=== PATIENT | male | born 1950 | race African-American/Black ===

== ENCOUNTER 2017-06-19 18:23 | Emergency (ER) | payer MEDICARE, OTHER ==
[2017-06-19 19:37] LABS: ADD MAN DIFF? NO
[2017-06-19] MEDS: LABETALOL 20 MG/4 ML DISP.SYRIN. IVP (19:39)
[2017-06-19 19:48] LABS: ANION GAP 10 (6-14); BLOOD UREA NITROGEN 17 mg/dL (8-26); CARBON DIOXIDE 28 mmol/L (21-32); CHLORIDE 106 mmol/L (98-107); CREATININE 1.3 mg/dL (0.7-1.3); GFR 66.6; GLUCOSE 90 mg/dL (70-99); POTASSIUM 3.7 mmol/L (3.5-5.1); SODIUM 144 mmol/L (136-145)
[2017-06-19 19:50] LABS: INR 1.1 (0.8-1.1); PROTHROMBIN TIME PATIENT 13.4 SEC (11.7-14.0)
[2017-06-19 19:52] LABS: BASO # 0.1 x10^3/uL (0.0-0.2); BASO % 1 % (0-3); EOS # 0.2 x10^3/uL (0.0-0.7); EOS % 3 % (0-3); HEMATOCRIT 37.8 % (39.0-53.0); HEMOGLOBIN 12.9 g/dL (13.0-17.5); LYMPH # 1.6 x10^3/uL (1.0-4.8); LYMPH % 24 % (24-48); MEAN CORPUSCULAR HEMOGLOBIN 30 pg (25-35); MEAN CORPUSCULAR HGB CONC 34 g/dL (31-37); MEAN CORPUSCULAR VOLUME 88 fL (79-100); MONO # 0.6 x10^3/uL (0.0-1.1); MONO % 8 % (0-9); NEUT # 4.3 x10^3uL (1.8-7.7); NEUT % 64 % (31-73); PLATELET COUNT 143 x10^3/uL (140-400); RED BLOOD COUNT 4.29 x10^6/uL (4.30-5.70); RED CELL DISTRIBUTION WIDTH 14.2 % (11.5-14.5); WHITE BLOOD COUNT 6.8 x10^3/uL (4.0-11.0)
[2017-06-19 20:28] LABS: PLT ESTIMATE ADEQUATE (ADEQUATE)
== END 2017-06-19 20:34 | disposition home or self-care (01) ==
LOC: ER 18:23
DX: R04.0 Epistaxis (principal); I10 Essential (primary) hypertension; E78.00 Pure hypercholesterolemia, unspecified; Z86.73 Personal history of transient ischemic attack (TIA), and cerebral infarction without residual deficits; Z88.0 Allergy status to penicillin
CPT/HCPCS: 36415; 80048; 85025; 85610; 96374; 99284-25; J3490

== ENCOUNTER → 2017-09-23 | Outpatient (CLI) | payer MEDICARE, OTHER ==
[2017-09-23 10:12] LABS: ADD MAN DIFF? NO
[2017-09-23 10:24] LABS: BASO % 1 % (0-3); EOS # 0.2 x10^3/uL (0.0-0.7); EOS % 3 % (0-3); HEMATOCRIT 42.7 % (39.0-53.0); HEMOGLOBIN 14.4 g/dL (13.0-17.5); LYMPH # 1.1 x10^3/uL (1.0-4.8); LYMPH % 20 % (24-48); MEAN CORPUSCULAR HEMOGLOBIN 30 pg (25-35); MEAN CORPUSCULAR HGB CONC 34 g/dL (31-37); MEAN CORPUSCULAR VOLUME 88 fL (79-100); MONO # 0.6 x10^3/uL (0.0-1.1); MONO % 10 % (0-9); NEUT # 3.7 x10^3uL (1.8-7.7); NEUT % 65 % (31-73); PLATELET COUNT 181 x10^3/uL (140-400); RED BLOOD COUNT 4.87 x10^6/uL (4.30-5.70); RED CELL DISTRIBUTION WIDTH 14.5 % (11.5-14.5); WHITE BLOOD COUNT 5.6 x10^3/uL (4.0-11.0)
[2017-09-23 10:51] LABS: ALBUMIN 3.6 g/dL (3.4-5.0); ALBUMIN/GLOBULIN RATIO 0.7 (1.0-1.7); ALK PHOS 118 U/L (46-116); ALT (SGPT) 22 U/L (16-63); ANION GAP 8 (6-14); AST (SGOT) 20 U/L (15-37); BLOOD UREA NITROGEN 20 mg/dL (8-26); BUN/CREATININE RATIO 13 (6-20); CALCIUM 9.6 mg/dL (8.5-10.1); CARBON DIOXIDE 29 mmol/L (21-32); CHLORIDE 104 mmol/L (98-107); CHOLESTEROL 115 mg/dL (0-200); CREATININE 1.6 mg/dL (0.7-1.3); GFR 52.3; GLUCOSE 113 mg/dL (70-99); HDLC 41 mg/dL (40-60); LDLC 60 mg/dL (0-100); NON-HDL CHOLESTEROL 74 mg/dL (0-129); POTASSIUM 3.4 mmol/L (3.5-5.1); SODIUM 141 mmol/L (136-145); TOTAL BILIRUBIN 0.6 mg/dL (0.2-1.0); TOTAL PROTEIN 8.5 g/dL (6.4-8.2); TRIGLYCERIDES 72 mg/dL (0-150); VLDLC 14 mg/dL (0-40)
[2017-09-23 10:52] LABS: CHOLESTEROL/HDL RATIO 2.8
[2017-09-23 11:06] LABS: THYROID STIM HORMONE (TSH) 0.645 uIU/mL (0.358-3.74)
[2017-09-23 11:07] LABS: PROSTATE SPECIFIC ANTIGEN 0.46 ng/mL (0.00-4.00)
== END | disposition home or self-care (01) ==
LOC: LAB 09:59
DX: Z12.5 Encounter for screening for malignant neoplasm of prostate (principal); I10 Essential (primary) hypertension; E78.2 Mixed hyperlipidemia; M54.5 Low back pain; R53.83 Other fatigue
CPT/HCPCS: 36415; 80053; 80061; 82306; 84443; 85025; 86141; G0103

== ENCOUNTER → 2018-06-08 | Outpatient (CLI) | payer MEDICARE, OTHER ==
[2017-06-19 20:34] VITALS: BP 172/100
[~2018-06-08] MED LIST: ACET325T9 PO; AMLO10TA8 PO; ASPI1CPM PO; ATOR40TA59 PO; BUPR150T6 PO; CARV3.1210 PO; DESI25TA PO; DEXT1DRO7 OP; FERR325T14 PO; FLUT9.9S NS; FOLI1TAB16 PO; GABA300C18 PO; HYDR12.58 PO; LISI-130 PO; NORT10CA3 PO; OXYC5TAB88 PO; PREG150C PO; SODI30SP NS
[2018-06-08 10:15] LABS: CHOLESTEROL/HDL RATIO 2.4
[2018-06-09 00:16] LABS: HEMOGLOBIN A1C 6.7 % (4.8-5.6)
== END | disposition home or self-care (01) ==
LOC: LAB 09:07
PROVIDERS: ATTEND Internal Medicine Cardiovascular Disease
DX: Z12.5 Encounter for screening for malignant neoplasm of prostate (principal); E78.2 Mixed hyperlipidemia
CPT/HCPCS: 36415; 80061; 82672; 83036; G0103

== ENCOUNTER → 2018-07-28 | Outpatient (CLI) | payer MEDICARE, OTHER ==
[2017-06-19 20:34] VITALS: BP 172/100
--- NOTE | 2018-07-28 10:00 | RAD ---
AP and Lateral Views of the Chest 07/28/2018 12:00 AM Indication: Follow-up, pneumonia Comparison: Chest radiograph May 14, 2016 Findings: No pneumothorax or pleural effusion is identified. No acute appearing focal consolidative infiltrate is seen. Heart size is normal. No acute osseous changes are identified. IMPRESSION: 1. No evidence of acute cardiopulmonary process Electronically signed by: Robin Barton MD (07/28/2018 9:58 AM) [id number]
[2018-07-28 10:14] LABS: CREATININE 1.2 mg/dL (0.7-1.3); GFR 72.6; POTASSIUM 3.8 mmol/L (3.5-5.1)
[2018-07-28 23:09] LABS: HEMOGLOBIN A1C 6.5 % (4.8-5.6)
== END | disposition home or self-care (01) ==
LOC: LAB 09:05
PROVIDERS: ATTEND Internal Medicine Cardiovascular Disease
DX: Z09 Encounter for follow-up examination after completed treatment for conditions other than malignant neoplasm (principal); E11.9 Type 2 diabetes mellitus without complications
CPT/HCPCS: 36415; 71046; 80048; 83036; 83735

== ENCOUNTER → 2019-01-21 | Outpatient (CLI) | payer OTHER ==
[2017-06-19 20:34] VITALS: BP 172/100
--- NOTE | 2019-01-22 08:08 | RAD ---
FOOT LEFT 2V 01/21/2019 12:00 AM INDICATION: Left foot pain, lateral aspect COMPARISON: None available. TECHNIQUE: 2 views of the left foot are provided. FINDINGS: There is a transversely oriented fracture involving the base of the fifth metatarsal with intra-articular extension to the tarsometatarsal joint. There is mild displacement with adjacent soft tissue swelling. Mild demineralization of the bones. Tiny posterior calcaneal enthesophyte is present. Vascular calcifications are present. IMPRESSION: Transversely oriented, mildly displaced fracture involving the base of the fifth metatarsal with intra-articular extension. Electronically signed by: Carito Unger MD (01/22/2019 8:05 AM) [id number]
== END | disposition home or self-care (01) ==
LOC: RAD 09:36
PROVIDERS: ATTEND Internal Medicine Cardiovascular Disease
DX: S92.352A Displaced fracture of fifth metatarsal bone, left foot, initial encounter for closed fracture (principal); M79.672 Pain in left foot; X58.XXXA Exposure to other specified factors, initial encounter; Y93.89 Activity, other specified; Y92.89 Other specified places as the place of occurrence of the external cause; Y99.8 Other external cause status
CPT/HCPCS: 73620

== ENCOUNTER → 2019-03-30 | Outpatient (CLI) | payer OTHER ==
[2017-06-19 20:34] VITALS: BP 172/100
--- NOTE | 2019-03-30 16:27 | RAD ---
EXAM: Left foot, 2 views. HISTORY: Fracture follow-up. COMPARISON: 01/21/2019 FINDINGS: 2 views of the left foot are obtained. There has been no significant change in a displaced fracture of the base of the fifth metatarsal. There has been no significant interval healing. No new fracture is seen. IMPRESSION: No significant change in a mildly displaced fracture involving the base of the fifth metatarsal. Electronically signed by: Therese España MD (03/30/2019 4:24 PM) [place] [id number]
== END | disposition home or self-care (01) ==
LOC: RAD 11:34
PROVIDERS: ATTEND Internal Medicine Cardiovascular Disease
DX: M79.672 Pain in left foot (principal)
CPT/HCPCS: 73620

== ENCOUNTER → 2019-04-26 | Outpatient (CLI) | payer OTHER ==
[2017-06-19 20:34] VITALS: BP 172/100
--- NOTE | 2019-04-26 15:53 | RAD ---
MRI of the lumbar spine without contrast 04/26/2019 CLINICAL HISTORY: Chronic low back pain. Osteoporosis. TECHNIQUE: Unenhanced T1-weighted and T2-weighted sagittal and axial and inversion recovery sagittal images of the lumbar spine were obtained. FINDINGS: For the purposes of this dictation five lumbar vertebrae have been assumed. The last reasonly well-defined lumbar-appearing disc space will be referred to as L5-S1. S1 is partially lumbarized. A hypoplastic disc is seen at S1-2. Minimal S-shaped curvature of the thoracolumbar spine is seen. Degenerative signal changes are seen involving all of the disks of the lumbar spine. Degenerative signal changes are seen within the marrow surrounding these discs. Loss of height of the L5-S1 disc is noted. The conus medullaris is within normal limits in morphology, position, and signal characteristics. The patient is post kyphoplasty type procedure for an old compression fracture involving the L1 vertebral body. No acute compression fracture of the lumbar vertebra is seen. At the L1-2 disc space there is a mild generalized disc bulge. This is eccentric to the right. Degenerative changes are seen involving the facet joints bilaterally. There is mild ligamentum flavum hypertrophy bilaterally. These findings when combined do not result in significant central spinal canal or neural foraminal stenosis. At the L2-3 disc space there is a mild generalized disc bulge. Degenerative changes are seen involving the facet joints bilaterally. There is mild ligamentum flavum hypertrophy bilaterally. These findings when combined result in mild central spinal canal stenosis. No neural foraminal stenosis is seen. At the L3-4 disc space there is a mild to moderate generalized disc bulge. Superimposed on this disc bulge is a left paracentral focal disc herniation which extrudes inferiorly to the mid L4 level. This extruded disc fragment measures 1.5 x 1.0 x 0.5 cm in craniocaudal, transverse and AP dimensions. Degenerative changes are seen involving the facet joints bilaterally. There is mild to moderate ligamentum flavum hypertrophy bilaterally. There are small facet joint effusions, left greater than right. These findings when combined with prominence of the posterior epidural fat result in mild to moderate central spinal canal stenosis. No neural foraminal stenosis is seen. The extruded disc fragment results in moderate left lateral central spinal canal stenosis to the mid L4 level. At the L4-5 disc space is a moderate generalized disc bulge. Degenerative changes are seen involving the facet joints bilaterally. There is moderate ligamentum flavum hypertrophy bilaterally. There is prominence of the posterior epidural fat. These findings when combined result in severe central spinal canal stenosis. No neural foraminal stenosis is seen. At the L5-S1 disc space there is a mild to moderate generalized disc bulge. Degenerative changes are seen involving the facet joints bilaterally. These findings when combined result in mild central spinal canal stenosis. Mild bilateral neural foraminal stenosis is seen. IMPRESSION: The changes of degenerative disc disease are seen throughout the lumbar spine. These findings result in mild central spinal canal stenosis at L2-3, mild to moderate central spinal canal stenosis at L3-4, moderate left lateral central spinal canal stenosis involving the superior/mid L4 level, severe central spinal canal stenosis at L4-5 and mild central spinal canal stenosis at L5-S1. Mild bilateral neural foraminal stenosis is seen at L5-S1. Electronically signed by: Javi García MD (04/26/2019 3:50 PM) [id number]
== END | disposition home or self-care (01) ==
LOC: MRI 14:01
PROVIDERS: ATTEND Internal Medicine Cardiovascular Disease
DX: M48.07 Spinal stenosis, lumbosacral region (principal); M51.36 Other intervertebral disc degeneration, lumbar region; M47.817 Spondylosis without myelopathy or radiculopathy, lumbosacral region; M81.0 Age-related osteoporosis without current pathological fracture; G89.29 Other chronic pain
CPT/HCPCS: 72148

== ENCOUNTER → 2019-07-05 | Outpatient (CLI) | payer OTHER ==
[2017-06-19 20:34] VITALS: BP 172/100
[2019-07-05 10:46] LABS: CHOLESTEROL/HDL RATIO 2.5
--- NOTE | 2019-07-05 15:52 | RAD ---
4 view study of the sternoclavicular joints-bilateral exam Clinical indications: Known injury. Swelling right side. FINDINGS: No acute fracture or lytic process is seen on either side. On the right side, there is a small erosion of the medial aspect of the clavicle. This most likely represents erosive osteoarthritis of the right sternoclavicular joint. There is mild degenerative joint space narrowing of the left sternoclavicular joint. 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 Mild degenerative osteoarthritis of the left sternoclavicular joint. Electronically signed by: Joel Casey MD (07/05/2019 3:15 PM) [facility]
[2019-07-06 00:07] LABS: HEMOGLOBIN A1C 6.5 % (4.8-5.6)
== END | disposition home or self-care (01) ==
LOC: RAD 09:30
PROVIDERS: ATTEND Internal Medicine Cardiovascular Disease
DX: M19.012 Primary osteoarthritis, left shoulder (principal); M19.011 Primary osteoarthritis, right shoulder; E11.9 Type 2 diabetes mellitus without complications; E78.2 Mixed hyperlipidemia
CPT/HCPCS: 36415; 71130; 80061; 83036; 83695

== ENCOUNTER 2020-08-30 15:38 | Emergency (ER) | payer OTHER ==
[~2020-08-30] VITALS: Ht 175.3 cm; Wt 70.4 kg
[~2020-08-30 15:38] MED LIST changes: +AMLO-187 PO; -AMLO10TA8 PO; +BUPR150T21 PO; -BUPR150T6 PO
[2020-08-30 16:30] VITALS: BP 98/60
--- NOTE | 2020-08-30 17:13 | RAD ---
Study: 1. XR SHOULDER_LEFT 2+ VIEWS 2. XR HAND_LEFT 3 VIEWS 3. XR FOREARM_LEFT 2 VIEWS 4. XR HUMERUS_LT 2 VIEWS 5. XR ELBOW COMPLETE_LEFT 3+VIEWS Indication: Fall. Pain. Comparison: None. Findings: Radiographs are obtained of the entire left upper extremity from the shoulder through the hand. Shoulder: Comminuted proximal humerus fracture with definitive involvement of the surgical neck and greater tub erosity. Presumed fracture extension across the anatomic neck and with lesser tuberosity involvement as well. A fracture fragment projecting medial to the surgical neck is displaced by around a centimet er. No malalignment across the glenohumeral joint. Cephalad displacement of the distal clavicle relat jian the acromion is of uncertain acuity. The coracoclavicular distance is increased at around 1.9 cm noting limited assessment by technique. Probable rotator cuff hydroxyapatite deposition in the region of the infraspinatus. Humerus: The more distal humerus is intact. Elbow: No appreciable fracture at the elbow or malalignment noting that assessment on the lateral views by o bliquity. No large elbow joint effusion. Mild elbow joint arthrosis. Forearm: No acute fracture of the radius or ulna. Wrist: No acute fracture or traumatic malalignment. Scattered arthrosis collectively mild/moderate in severi ty such as involving the distal radioulnar joint and triscaphe joint. Ossification along the radial m argin of the radius scaphoid articulation appears chronic. Hand: Limited assessment for subtle fractures on the oblique and lateral views by osseous overlap. No displ aced fracture is apparent or traumatic malalignment. Multifocal arthrosis collectively moderate in se verity. Impression: Left shoulder/humerus/elbow/forearm/wrist/hand: 1. Comminuted proximal humerus fracture with surgical neck, anatomic neck and greater tuberosity invo lvement well-visualized and with probable lesser tuberosity involvement as well. A fracture fragment projecting medial to the surgical neck is displaced by around a centimeter. Glenohumeral joint alignm ent is maintained. 2. Cephalad displacement of the distal clavicle relative to the acromion and an increased coracoclavi cular distance. This is compatible with grade 3 AC joint separation though the acuity is uncertain. R ecommend correlation with physical exam. 3. No acute fracture of the more distal humerus. No acute fracture seen at the elbow, forearm, wrist or hand. Multifocal arthrosis. Electronically signed by: MAEGAN PALACIOS MD (08/30/2020 5:11 PM) [facility]
--- NOTE | 2020-08-30 17:55 | PHYS DOC ---
Past Medical History Past Medical History: A-Fib, High Cholesterol, Hypertension, Stroke Past Surgical History: Other Additional Past Surgical Histo: BACK SX, HERNIA Smoking Status: Current Every Day Smoker Alcohol Use: Occasionally Drug Use: None General Adult EDM: Chief Complaint: SHOULDER INJURY HPI: HPI: Patient is a 70 year old male with history of hypertension, high cholesterol, A. 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 Patient states he tripped and fell on his steps. Denies any loss of consciousness, denies hitting his head on the ground. Rates the pain a 6 out of 10, describes the pain as sharp and intermittent worse on touching or moving the left upper extremity. Review of Systems: Review of Systems: Constitutional: Denies fever or chills. [] Musculoskeletal: Reports left upper extremity pain Integument: Denies rash. [] Neurologic: Denies headache, focal weakness or sensory changes. [] Psychiatric: Denies depression or anxiety. [] Heart Score: C/O Chest Pain: N/A Risk Factors: Risk Factors: DM, Current or recent (<one month) smoker, HTN, HLP, family history of CAD, obesity. Risk Scores: Score 0 - 3: 2.5% MACE over next 6 weeks - Discharge Home Score 4 - 6: 20.3% MACE over next 6 weeks - Admit for Clinical Observation Score 7 - 10: 72.7% MACE over next 6 weeks - Early Invasive Strategies Allergies: Allergies: Allergies Coded Allergies Type Severity Reaction Last Updated Verified Penicillins Allergy Intermediate Rash 05/14/16 Yes Physical Exam: PE: Constitutional: Well developed, well nourished, no acute distress, non-toxic appearance. [] Skin: Warm, dry, no erythema, no rash. [] Back: No tenderness, no CVA tenderness. [] Extremities: Left upper extremity has some contractures from previous CVA. Tenderness on palpation of the left humerus and shoulder. Limited range of motion to the left upper extremity some of it from the previous CVA. Sensation intact to the left upper extremity. +2 left radial pulse. Neurologic: Alert and oriented X 3, normal motor function, normal sensory function, no focal deficits noted. [] Psychologic: Affect normal, judgement normal, mood normal. [] Current Patient Data: Vital Signs: Vital Signs Date Time Temp Pulse Resp B/P (MAP) Pulse Ox O2 Delivery O2 Flow Rate FiO2 08/30/20 16:30 98.8 94 18 98/60 (73) 96 Room Air 98.8 EKG: EKG: [] Radiology/Procedures: Radiology/Procedures: []PROCEDURE: FOREARM LEFT Study: 1. XR SHOULDER_LEFT 2+ VIEWS 2. XR HAND_LEFT 3 VIEWS 3. XR FOREARM_LEFT 2 VIEWS 4. XR HUMERUS_LT 2 VIEWS 5. XR ELBOW COMPLETE_LEFT 3+VIEWS Indication: Fall. Pain. Comparison: None. Findings: Radiographs are obtained of the entire left upper extremity from the shoulder through the hand. Shoulder: Comminuted proximal humerus fracture with definitive involvement of the surgical neck and greater tuberosity. Presumed fracture extension across the anatomic neck and with lesser tuberosity involvement as well. A fracture fragment projecting medial to the surgical neck is displaced by around a centimeter. No malalignment across the glenohumeral joint. Cephalad displacement of the distal clavicle relative the acromion is of uncertain acuity. The coracoclavicular distance is increased at around 1.9 cm noting limited assessment by technique. Probable rotator cuff hydroxyapatite deposition in the region of the infraspinatus. Humerus: The more distal humerus is intact. Elbow: No appreciable fracture at the elbow or malalignment noting that assessment on the lateral views by obliquity. No large elbow joint effusion. Mild elbow joint arthrosis. Forearm: No acute fracture of the radius or ulna. Wrist: No acute fracture or traumatic malalignment. Scattered arthrosis collectively mild/moderate in severity such as involving the distal radioulnar joint and triscaphe joint. Ossification along the radial margin of the radius scaphoid articulation appears chronic. Hand: Limited assessment for subtle fractures on the oblique and lateral views by osseous overlap. No displaced fracture is apparent or traumatic malalignment. Multifocal arthrosis collectively moderate in severity. Impression: Left shoulder/humerus/elbow/forearm/wrist/hand: 1. Comminuted proximal humerus fracture with surgical neck, anatomic neck and greater tuberosity involvement well-visualized and with probable lesser tuberosity involvement as well. A fracture fragment projecting medial to the surgical neck is displaced by around a centimeter. Glenohumeral joint alignment is maintained. 2. Cephalad displacement of the distal clavicle relative to the acromion and an increased coracoclavicular distance. This is compatible with grade 3 AC joint separation though the acuity is uncertain. Recommend correlation with physical exam. 3. No acute fracture of the more distal humerus. No acute fracture seen at the elbow, forearm, wrist or hand. Multifocal arthrosis. Electronically signed by: MAEGAN PALACIOS MD (08/30/2020 5:11 PM) [facility] DICTATED and SIGNED BY: MAEGAN PALACIOS MD DATE: 08/30/20 [id number] 0 Course & Med Decision Making: Course & Med Decision Making Pertinent Labs and Imaging studies reviewed. (See chart for details) This is a 70-year-old male patient presented to the ED today complaining of left upper extremity pain that began 3 days ago after he tripped on his steps and fell landing on his left shoulder. Patient has previous history of CVA with left upper extremity deformity Left shoulder x-rays, left humerus x-rays noted for comminuted proximal humerus fracture with surgical neck, anatomic neck and greater tuberosity involvement well-visualized and with probable lesser tuberosity involvement as well. A fracture fragment projecting medial to the surgical neck is displaced by around a centimeter. Glenohumeral joint alignment is maintained. Grade 3 AC joint separation though the acuity is uncertain.No acute fracture of the more distal humerus. No acute fracture seen at the elbow, forearm, wrist or hand. Multifocal arthrosis. Sling provided for left upper extremity. Orthopedic doctor provided for patient to: Follow-up in the morning Janine Disclaimer: Janine Disclaimer: This electronic medical record was generated, in whole or in part, using a voice recognition dictation system. Departure Departure Impression: Primary Impression: Fall from standing Qualified Codes: W19.XXXA - Unspecified fall, initial encounter Additional Impressions: Humerus head fracture Qualified Codes: S42.292A - Other displaced fracture of upper end of left humerus, initial encounter for closed fracture AC separation, type 3 Qualified Codes: S43.102A - Unspecified dislocation of left a cromioclavicular joint, initial encounter Disposition: 01 DC HOME SELF CARE/HOMELESS Condition: STABLE Referrals: ROBERT MARTÍNEZ MD (PCP) BAMBI EGAN MD Call his office tomorrow morning and set up a follow-up appointment Patient Instructions: Fall Prevention and Home Safety, [id number], Humerus Fracture, Treated with Immobilization, [id number] Additional Instructions: You were evaluated in the emergency room and noted to have left humerus fracture and left AC joint separation. We put you in a sling. Please follow-up with the provided orthopedic doctor, call the office tomorrow and get an appointment to be seen in the clinic. Take the prescribed pain medicine as needed. Scripts Hydrocodone Bit/Acetaminophen (HYDROCODONE-APAP 5-325 ) 1 Tab Tablet 1 TAB PO PRN Q6HRS PRN for PAIN, #14 TAB 0 Refills Prov: VARSHA MADERA APRN 08/30/20 VARSHA MADERA APRN Aug 30, 2020 17:55
[2020-08-30] MEDS ORDERED: HYDR-2761 PO (18:16)
== END 2020-08-30 19:05 | disposition home or self-care (01) ==
LOC: ER 15:38
DX: S42.292A Other displaced fracture of upper end of left humerus, initial encounter for closed fracture (principal); S43.102A Unspecified dislocation of left acromioclavicular joint, initial encounter; I48.91 Unspecified atrial fibrillation; E78.00 Pure hypercholesterolemia, unspecified; I10 Essential (primary) hypertension; F17.200 Nicotine dependence, unspecified, uncomplicated; Z86.73 Personal history of transient ischemic attack (TIA), and cerebral infarction without residual deficits; W01.0XXA Fall on same level from slipping, tripping and stumbling without subsequent striking against object, initial encounter; Y93.89 Activity, other specified; Y92.89 Other specified places as the place of occurrence of the external cause; Y99.8 Other external cause status
CPT/HCPCS: 73030; 73060; 73080; 73090; 73130; 99284; A4565

== ENCOUNTER → 2020-10-11 | Outpatient (CLI) | payer OTHER ==
[~2020-10-11] MED LIST changes: +HYDR-2761 PO
[2020-10-11 10:30] LABS: BASO # 0.1 x10^3/uL (0.0-0.2); BASO % 1 % (0-3); EOS # 0.1 x10^3/uL (0.0-0.7); EOS % 2 % (0-3); HEMATOCRIT 37.6 % (39.0-53.0); HEMOGLOBIN 12.4 g/dL (13.0-17.5); LYMPH # 1.2 x10^3/uL (1.0-4.8); LYMPH % 19 % (24-48); MEAN CORPUSCULAR HEMOGLOBIN 29 pg (25-35); MEAN CORPUSCULAR HGB CONC 33 g/dL (31-37); MEAN CORPUSCULAR VOLUME 89 fL (79-100); MONO # 0.6 x10^3/uL (0.0-1.1); MONO % 11 % (0-9); NEUT # 4.1 x10^3/uL (1.8-7.7); NEUT % 67 % (31-73); PLATELET COUNT 186 x10^3/uL (140-400); RED BLOOD COUNT 4.25 x10^6/uL (4.30-5.70); RED CELL DISTRIBUTION WIDTH 14.7 % (11.5-14.5); WHITE BLOOD COUNT 6.1 x10^3/uL (4.0-11.0)
[2020-10-11 11:03] LABS: ALBUMIN/GLOBULIN RATIO 0.9 (1.0-1.7); CALCIUM 9.3 mg/dL (8.5-10.1); CREATININE 1.3 mg/dL (0.7-1.3); GFR 65.8; POTASSIUM 4.2 mmol/L (3.5-5.1); TOTAL BILIRUBIN 0.9 mg/dL (0.2-1.0); TOTAL PROTEIN 8.3 g/dL (6.4-8.2)
[2020-10-11 11:04] LABS: CHOLESTEROL/HDL RATIO 2.3
[2020-10-12 01:12] LABS: HEMOGLOBIN A1C 6.1 % (4.8-5.6)
== END ==
LOC: LAB 09:52
PROVIDERS: ATTEND Internal Medicine Cardiovascular Disease
DX: Z12.5 Encounter for screening for malignant neoplasm of prostate (principal); E11.9 Type 2 diabetes mellitus without complications; M25.512 Pain in left shoulder
CPT/HCPCS: 80053; 80061; 82306; 83036; 83700; 85025; 86141; G0103

== ENCOUNTER → 2020-10-20 | Outpatient (CLI) | payer OTHER ==
--- NOTE | 2020-10-20 10:44 | RAD ---
EXAM: Chest, 2 views. HISTORY: COPD. COMPARISON: 07/28/2018 FINDINGS: 2 views of the chest are obtained. There are chronic appearing interstitial changes. There is no consolidation, pleural fusion or pneumothorax. There are multiple healed rib fractures. There i s partial visualization of a proximal left humeral fracture and suspected subluxation of the left acr omioclavicular joint. IMPRESSION: 1. Chronic appearing interstitial changes. 2. Please refer to the separate report for shoulder radiographs on the same date for additional findi ngs. Electronically signed by: Therese España MD (10/20/2020 10:42 AM) [id number]
--- NOTE | 2020-10-20 13:55 | RAD ---
Study: XR SHOULDER 2+ VIEWS Indication: Bilateral shoulder pain. Comparison: Left shoulder radiographs 08/30/2020 Findings: Left shoulder: Redemonstrated comminuted proximal humerus fracture involvement of the surgical neck, anatomic neck a nd both tuberosities. Noting differences in technique the lesser tuberosity fracture fragment is disp laced inferomedially by a greater degree. There is also slightly more displacement of the greater tub erosity Callus formation without solid osseous bridging. Redemonstrated malalignment across the acrom iohumeral joint. Progressive proximal humerus osteopenia. No discrete subchondral lucency or articula r surface collapse at the medial humeral head to suggest avascular necrosis. There is likely a should er joint effusion given positioning of the humeral head relative to the acromial undersurface on the AP internal rotation view and scapular Y view. Right shoulder: No acute fracture or malalignment. Moderate AC joint arthrosis and mild arthrosis across the glenohum eral joint. The acromiohumeral interval is relatively well maintained. Osteopenia. Impression: Left shoulder: 1. Redemonstrated comminuted proximal humerus fracture. There appears to be slightly more pronounced displacement of the lesser tuberosity fragment and faintly progressed displacement of the greater tub erosity noting differences in patient positioning/technique. Callus formation without solid bridging bone. No definitive findings of avascular necrosis at this time noting that the patient is at high ri sk for developing this condition. 2. Redemonstrated malalignment across the AC joint. 3. Probable shoulder joint effusion. Right shoulder: 1. No acute fracture or malalignment. 2. Moderate AC and mild glenohumeral joint arthrosis. 3. Osteopenia. Electronically signed by: MAEGAN PALACIOS MD (10/20/2020 1:53 PM) [facility]
== END ==
LOC: RAD 09:52
PROVIDERS: ATTEND Internal Medicine Cardiovascular Disease
DX: S42.392A Other fracture of shaft of left humerus, initial encounter for closed fracture (principal); J44.9 Chronic obstructive pulmonary disease, unspecified; M17.12 Unilateral primary osteoarthritis, left knee; M17.11 Unilateral primary osteoarthritis, right knee; M85.812 Other specified disorders of bone density and structure, left shoulder; X58.XXXA Exposure to other specified factors, initial encounter; Y93.89 Activity, other specified; Y92.89 Other specified places as the place of occurrence of the external cause; Y99.8 Other external cause status
CPT/HCPCS: 71046; 73030-50